=== PATIENT | female | born 1935 | race Caucasian/White ===

== ENCOUNTER 2016-05-15 14:06 | Inpatient (IN) | payer MEDICARE, OTHER ==
[2016-05-15] MEDS ORDERED: HOME MEDICATION LIST NEEDED 1 EA EACH MC ONE (14:15)
[2016-05-15] MEDS ORDERED: ALBUTEROL 0.083% 2.5 MG/3 ML VIAL.NEB NEB PRN (14:18)
[2016-05-15 14:54] LABS: EOSINOPHILS 0.3 % (0.0-6.0)
[2016-05-15 14:58] LABS: NEUTROPHILS# 12.5 X 10^3uL (2.6-6.7)
[2016-05-15] MEDS ORDERED: DEXTROSE 5% IV SCH (15:00)
[2016-05-15] MEDS ORDERED: O2 HUMIDIFIER 650 ML BOTTLE INHALATION ONE (15:00)
[2016-05-15] MEDS ORDERED: D5W IV SCH (15:00)
[2016-05-15] MEDS ORDERED: LEVOFLOXACIN IV SCH (15:00)
[2016-05-15 15:02] LABS: BASOPHIL# 0.1 X 10^3uL (0.0-0.1); BASOPHILS 0.9 % (0.0-2.0); HEMATOCRIT 35.8 % (36.0-48.0); HEMOGLOBIN 11.9 g/dL (12.0-16.0); LYMPHOCYTES 8.8 % (20.0-40.0); LYMPHOCYTES# 1.3 X 10^3uL (0.8-3.8); MEAN CELL VOLUME 91.7 fL (80.0-100.0); MEAN CORPUS. HGB CONCENTRATION 33.3 g/dL (32.0-36.0); MEAN CORPUSCULAR HEMOGLOBIN 30.6 pg (29.0-35.0); MEAN PLATELET VOLUME 7.9 fL (7.4-10.4); MONOCYTES 6.9 % (2.0-10.0); RED BLOOD COUNT 3.91 X 10^6uL (4.20-6.10); RED CELL DISTRIBUTION WIDTH 14.5 % (11.5-14.5)
[2016-05-15 15:04] LABS: NEUTROPHILS 83.1 % (54.0-75.0); WHITE BLOOD COUNT 14.9 X 10^3uL (3.9-10.7)
[2016-05-15 15:07] LABS: ALBUMIN 3.9 g/dL (3.5-5.0); BILIRUBIN, DIRECT 0.5 mg/dL (0.0-0.4); BILIRUBIN, TOTAL 1.9 mg/dL (0.2-1.3); CALCIUM 9.4 mg/dL (8.4-10.2); CREATININE 1.8 mg/dL (0.5-1.0); POTASSIUM 3.9 mmol/L (3.5-5.1); TOTAL PROTEIN 7.4 g/dL (6.3-8.2)
[2016-05-15] MEDS ORDERED: LEVOFLOXACIN/D5W 100 ML IV ONE (16:10)
[2016-05-15] MEDS: POTASSIUM CHLORIDE/NS 1,000 ML IV SCH (16:10)
--- NOTE | 2016-05-15 16:48 | HISTORY & PHYSICAL ---
CHIEF COMPLAINT: Severe cough and pneumonia. HISTORY OF PRESENT ILLNESS: The patient is a 80-year-old male with a long history of chronic pulmonary disease with bronchiectasis and previous left lower lobe resection. She has chronic airway reactivity and chronic cough. However, over the last month, she has had a significant increase in cough which has been productive of thick sputum. In association with this, she has had an increase in shortness of breath, dyspnea on exertion, and wheezing. She has had fevers up to 101 at home. She has had some subjective chills but no shaking chills. She chronically has diffuse chest discomfort which she has attributed to pulmonary problems and there has not been any significant change with this. She denies any palpitations. No orthopnea, PND, significant lower extremity edema. She denies any abdominal pain, nausea or vomiting. No significant asymmetry of her lower extremities. No rashes. No focal neurologic changes from her baseline but she does have diffuse weakness which has been a little bit more noticeable in her legs particularly over the last day. She is eating and drinking but not very hungry. She had more lightheadedness today particularly with sitting up quickly or standing. She was seen in the clinic yesterday by VIRGINIA Solis, and also by Dr. Guerrero of internal medicine. Their recommendation at the time was hospitalization for bilateral pneumonia. Based upon her presentation, significant leukocytosis, abnormal chest x-ray with worsening of left lower lobe with left lower lung appearance, and CT scan without contrast which showed evidence of left lingular infiltrate and also some infiltrate in the right lower lobe. At that point in time the patient declined. She was started on Levaquin orally which was renally dosed. She was written for albuterol nebs to be added to her usual regimen, and oxygen 24 hours a day was recommended. She is back today for reevaluation, feeling more lightheaded and weak. Based on this, she is now being admitted to the hospital for further evaluation and treatment. PAST MEDICAL HISTORY 1. Anemia, chronic disease. 2. History of recurrent angioedema. 3. Moderate aortic regurgitation. 4. Osteoarthritis. 5. Severe asthma in the setting of COPD and bronchiectasis. 6. Basal cell carcinoma involving forehead. 7. Benign liver cyst. 8. Bilateral hearing loss. 9. Bronchiectasis. 10.Bilateral cataracts. 11.Celiac disease. 12. Chronic chest pain. 13. Chronic recurrent mastoiditis. 14. Chronic kidney disease stage 4 with creatinine ranging from 1.5 2. 15. Colon polyps. 16. COPD. 17. Depression. 18. Chronic mild lower extremity edema. 19. GERD. 20. Gout. 21. History of hematuria. 22. Hypercholesterolemia. 23. Hyperparathyroidism. 24. Hypertension. 25. Hypokalemia. 26. Hypothyroidism. 27. Hypoxemia, chronic. 28. Insomnia. 29. IBS. 30. Left bundle branch block. 31. Lichen planus. 32. History of medical nonadherence. 33. Mitral regurgitation. 34. JUAN DANIEL. 35. Recurrent pneumonia. 36. Polypharmacy. 37. Positive ELSA of uncertain significance. 38. TIA in 2004. 39. Tremor. 40. Urethritis, recurrent. 41. Urinary incontinence. 42. Vitamin B12 deficiency. 43. Vitamin D deficiency. PAST SURGICAL HISTORY 1. Appendectomy. 2. Bladder suspension. 3. Cholecystectomy. 4. Core needle biopsy of the breast times multiple involving the left side. 5. Left lower lobe lobectomy of the lung. 6. Mastoidectomy on the right side. 7. Sinus surgery times 2. 8. RADHA with BSO for fibroids. ALLERGIES 1. CARMEN inhibitors resulting in angioedema. 2. Ativan resulting in respiratory arrest. 3. Aztreonam resulting in abdominal pain, nausea and headache. 4. Codeine resulting in uncertain reaction. 5. Iodine resulting in hives. 6. Morphine resulting in respiratory arrest when given in conjunction with Ativan. 7. Penicillin resulting in uncertain reaction. 8. Rocephin resulting in uncertain reaction. MEDICATIONS Advair 500/50, one inhalation b.i.d. Albuterol nebs every 4 hours as needed. Allopurinol 200 mg p.o. daily. Amlodipine 5 mg p.o. daily. Bupropion 150 mg p.o. daily. Combivent 2 puffs 4 times a day as needed. Effexor XR 150 mg p.o. daily. Levaquin 250 mg p.o. daily. Losartan 25 mg p.o. daily. Mucinex 1200 mg p.o. b.i.d. Oxygen at 2 liters per minute by nasal cannula. Omeprazole 40 mg p.o. daily. Plavix 75 mg p.o. daily. Premarin 0.3 mg p.o. daily. Simvastatin 40 mg p.o. q.h.s. Synthroid 75 mcg p.o. daily. Vesicare 10 mg p.o. daily. Vitamin B12 1000 mcg p.o. daily. Vitamin D 2000 units p.o. daily. Zantac 150 mg p.o. daily as needed. SOCIAL HISTORY: Long discussion with her today regarding core status and she wishes to be DNR due to age and decreasing quality of life and multiple comorbidities and low likelihood of a meaningful recovery in the event of a significant cardiac or pulmonary arrest. She does not want to be intubated and placed on a ventilator. Rare alcohol use. Never smoker. FAMILY HISTORY: Noncontributory. REVIEW OF SYSTEMS: Pertinent positives and negatives as above. Remainder are negative. PHYSICAL EXAMINATION VITAL SIGNS: Show a temperature of 96.9, with a blood pressure 100/48, pulse of 71, respirations of 24, 83% on room air and 92% with 2 liters. GENERAL: Well-developed female. No significant respiratory distress and no use of accessory muscles. Talking in mostly full sentences occasionally with an extra breath. Appears tired. HEENT: Normocephalic/atraumatic. Sinuses are nontender in the frontal maxillary regions. Pupil show evidence of prior cataract surgery. Pupils are equal, round and reactive to light with extraocular muscles intact. Oropharynx is clear other than dry mucous membranes. NECK: Supple. She does have some fullness of her left more than her right left submandibular gland. CHEST: Moderately decreased breath sounds throughout. Diffuse mild to moderate wheezes. A few inspiratory squeaks in scattered locations both posteriorly and anteriorly bilaterally. She has left basilar rales more than right. No change in tactile fremitus. Chest wall is nontender. CARDIAC: Regular rate and rhythm. I do not hear an S3 or an S4. She does have a 2/6 holosystolic murmur best heard at the apex and left lower sternal border. ABDOMEN: Positive bowel sounds. Soft, nontender, nondistended. No hepatosplenomegaly. BACK: No costovertebral angle tenderness. EXTREMITIES: No central cyanosis. She does have mild acrocyanosis. Calves are mildly diffusely tender bilaterally. I do not feel any cords and Homans sign is negative. SKIN: No rashes. NEUROLOGIC: The patient alert and oriented times 3. Facial expressions are symmetric. Light touch sensation appears intact. She is moving all 4 extremities equally. LABORATORY STUDIES: Reviewed from yesterday. Her white blood count is 22,000 with hematocrit f 37 and platelets of 231, 84% neutrophils. Her BMP shows a sodium of 134 with a BUN and creatinine of 21 and 1.7 respectively. CHEST X-RAY: Showing evidence of confluent infiltrate in the lingual and enlargement of the left hilum. CT SCAN: Done without contrast yesterday showing no mass in the left hilar region but does show evidence of a left lingual infiltrate with hilar lymphadenopathy. Also some lesser infiltrate in the right lower lobe. Final radiology read on this is pending. ASSESSMENT AND PLAN 1. Pneumonia. Bilateral. Complicated. In the setting of underlying pulmonary disease including COPD/bronchiectasis/asthma. Presenting with increased airway reactivity and shortness of breath and hypoxia with elevated white count with left shift. Organism is unknown. She did not have cultures yesterday. Will obtain these today although she was already started on outpatient oral antibiotics. I will reassess blood counts and chemistries considering her worsening over the last day. I will plan to continue on levofloxacin considering her medication intolerances. Will add IV steroids. Will add bronchodilators via nebulized therapy. Gentle IV fluid resuscitation. There is no current evidence of cardiac decompensation. Doubt pulmonary embolus based on her current presentation which is a pattern of infection. I did review all of this with her today and she is now willing to be admitted to the hospital. Reassess in the morning. 2. Bronchiectasis/COPD/asthma: See above. 3. Hypertension: Will continue on her usual medication regimen and gently IV fluid resuscitate as above. Hold meds for hypotension. 4. Hypercholesterolemia: Continue on usual statin. 5. Depression: Continue on usual medications. 6. Other medical issues will be followed in the context of the above. 7. Vaccine status: The patients last pneumonia shot was Prevnar in 08/2015 and she had her last Pneumovax in 07/2005. Her last flu shot was in 12/2015. Her last TDAP was in 01/2006 and so she is due. This can be given prior to discharge if she is doing well clinically. 8. DVT prophylaxis: Lovenox, renally dosed. 9. Core status: The patient wishes to be DNR as per our discussion today. She would not want to be transferred to an ICU to be placed on a ventilator. That being said, she is willing to accept aggressive medical therapy at this time. FADIA
[2016-05-15] MEDS: IPRATROPIUM/ALBUTEROL 0.5/3 MG 3 ML AMPUL.NEB IH SCH ×2 (17:59→20:28)
[2016-05-15] MEDS ORDERED: POLYVINYL ALCOHOL 1.4% OPHTH 75 DROP/15 ML BTL OPHTHALMIC PRN (20:35)
[2016-05-15] MEDS: ACETAMINOPHEN 325 MG TABLET PO PRN (23:24)
[2016-05-16] MEDS: POTASSIUM CHLORIDE/NS 1,000 ML IV SCH (02:45)
[2016-05-16 06:56] LABS: BASOPHIL# 0.1 X 10^3uL (0.0-0.1); EOSINOPHILS 0.7 % (0.0-6.0); EOSINOPHILS# 0.1 X 10^3uL (0.0-0.4); HEMATOCRIT 32.4 % (36.0-48.0); HEMOGLOBIN 10.4 g/dL (12.0-16.0); LYMPHOCYTES 11.4 % (20.0-40.0); LYMPHOCYTES# 1.2 X 10^3uL (0.8-3.8); MEAN CELL VOLUME 91.7 fL (80.0-100.0); MEAN CORPUS. HGB CONCENTRATION 32.1 g/dL (32.0-36.0); MEAN CORPUSCULAR HEMOGLOBIN 29.5 pg (29.0-35.0); MEAN PLATELET VOLUME 8.5 fL (7.4-10.4); MONOCYTES# 1.1 X 10^3uL (0.2-1.0); NEUTROPHILS 76.9 % (54.0-75.0); NEUTROPHILS# 8.1 X 10^3uL (2.6-6.7); RED BLOOD COUNT 3.53 X 10^6uL (4.20-6.10); RED CELL DISTRIBUTION WIDTH 14.1 % (11.5-14.5); WHITE BLOOD COUNT 10.6 X 10^3uL (3.9-10.7)
[2016-05-16 07:13] LABS: CALCIUM 8.9 mg/dL (8.4-10.2); CREATININE 1.5 mg/dL (0.5-1.0); POTASSIUM 4.3 mmol/L (3.5-5.1)
--- NOTE | 2016-05-16 07:49 | PROGRESS NOTE: IM APSO ---
Assessment and Plan - Date of Encounter Date of Encounter: 05/16/16 (1) Bronchiectasis with acute exacerbation Status: Acute Assessment and plan: Improvement overnight. Good oxygenation on 2-3 L. Still with cough but decreased wheeze. Leukocytosis improving. Continue current antibiotics. Continue current bronchodilators. Oral steroids. Reassess labs in the morning. Ambulate today. Current Visit: Yes (2) Pneumonia, bacterial Status: Acute Assessment and plan: See above. Current Visit: Yes (3) Asthma with exacerbation Status: Acute Assessment and plan: See above. Current Visit: Yes (4) CKD (chronic kidney disease) stage 4, GFR 15-29 ml/min Status: Acute Assessment and plan: Improvement with IV fluids overnight. Continue gentle IV fluids and reassess in the morning. Current Visit: Yes (5) Anemia, chronic disease Status: Acute Assessment and plan: Stable. Current Visit: Yes (6) Hypertension, benign Status: Acute Assessment and plan: Blood pressure appears well controlled. Continue usual regimen. Current Visit: Yes (7) DVT prophylaxis Status: Acute Assessment and plan: Remains on renally dosed Lovenox. Current Visit: Yes - Time Spent With Patient Total time spent with greater than 50% in coordination of care (as documented) at patient's floor/unit and/or counseling patient: IM: PN Subjective General: fatigue, malaise, no fever, no chills Cardiovascular: chest pain (chronic, diffuse), no palpitations, no dizziness Respiratory: cough, sputum, wheeze, SOB Gastrointestinal: no abdominal pain, no nausea, no vomiting Genitourinary: incontinence (chronic) Integumentary: no rashes IM: PN Objective Exam - I&O/Vital Signs I&O: Intake & Output 05/15/16 05/16/16 05/16/16 21:59 05:59 13:59 Intake Total 1347 1900 Balance 1347 1900 Weight 90.718 kg 91.399 kg Intake: IV 467 950 Left Hand 467 950 Oral 880 950 Other: Voiding Method Toilet Toilet # Voids 3 Vital Signs: Last Vital Signs Temp 36.6 C 05/16/16 06:19 Pulse 67 05/16/16 06:19 Resp 18 05/16/16 06:19 BP 144/62 05/16/16 06:19 Pulse Ox 96 05/16/16 06:19 Oxygen Flow Rate 3 Oxygen Delivery Method Nasal Cannula - Constitutional General appearance: Present: obese - Head Head exam: Present: atraumatic - Eye Eye exam: Absent: scleral icterus - ENT ENT exam: Present: mucous membranes moist - Neck Neck exam: Present: full ROM - Respiratory Respiratory exam: Present: decreased breath sounds, prolonged expiratory phase, rales (left greater than right base), rhonchi (mild, scattered), wheezes (mild, scattered). Absent: accessory muscle use - Cardiovascular Cardiovascular exam: Present: RRR, systolic murmur. Absent: S3, S4 - GI/Abdominal GI/Abdominal exam: Present: normal bowel sounds, soft. Absent: organomegaly, tenderness - Extremities Exam Extremities exam: Present: edema (trace bilateral). Absent: Jami's Sign - Neurological Exam Neurological exam: Present: oriented X3 - Psychiatric Psychiatric exam: Present: depressed (flat affect). Absent: agitated, anxious - Lab Labs: Laboratory Last Values WBC 10.6 X 10^3uL (3.9-10.7) 05/16/16 06:00 RBC 3.53 X 10^6uL (4.20-6.10) L 05/16/16 06:00 Hgb 10.4 g/dL (12.0-16.0) L 05/16/16 06:00 Hct 32.4 % (36.0-48.0) L 05/16/16 06:00 MCV 91.7 fL (80.0-100.0) 05/16/16 06:00 MCH 29.5 pg (29.0-35.0) 05/16/16 06:00 MCHC 32.1 g/dL (32.0-36.0) 05/16/16 06:00 RDW 14.1 % (11.5-14.5) 05/16/16 06:00 Plt Count 215 X 10^3uL (130-440) 05/16/16 06:00 MPV 8.5 fL (7.4-10.4) 05/16/16 06:00 Neutrophils % 76.9 % (54.0-75.0) H 05/16/16 06:00 Lymphocytes % 11.4 % (20.0-40.0) L 05/16/16 06:00 Eosinophils % 0.7 % (0.0-6.0) 05/16/16 06:00 Basophils % 1.0 % (0.0-2.0) 05/16/16 06:00 Neutrophils # 8.1 X 10^3uL (2.6-6.7) H 05/16/16 06:00 Lymphocytes # 1.2 X 10^3uL (0.8-3.8) 05/16/16 06:00 Monocytes 10.0 % (2.0-10.0) 05/16/16 06:00 Monocytes # 1.1 X 10^3uL (0.2-1.0) H 05/16/16 06:00 Eosinophils # 0.1 X 10^3uL (0.0-0.4) 05/16/16 06:00 Basophils # 0.1 X 10^3uL (0.0-0.1) 05/16/16 06:00 Sodium 139 mmol/L (137-145) 05/16/16 06:00 Potassium 4.3 mmol/L (3.5-5.1) 05/16/16 06:00 Chloride 108 mmol/L (98-107) H 05/16/16 06:00 Carbon Dioxide 23 mmol/L (22-30) 05/16/16 06:00 BUN 20 mg/dL (7-17) H 05/16/16 06:00 Creatinine 1.5 mg/dL (0.5-1.0) H 05/16/16 06:00 GFR Calculation 36 mL/min 05/16/16 06:00 Glucose 87 mg/dL (70-100) 05/16/16 06:00 Calcium 8.9 mg/dL (8.4-10.2) 05/16/16 06:00 Total Bilirubin 1.9 mg/dL (0.2-1.3) H D 05/15/16 14:45 Direct Bilirubin 0.5 mg/dL (0.0-0.4) H 05/15/16 14:45 AST 16 U/L (14-36) 05/15/16 14:45 ALT 33 U/L (9-52) 05/15/16 14:45 Alkaline Phosphatase 101 U/L (38-126) 05/15/16 14:45 NT-Pro-B Natriuret Pep 1410 pg/mL (<450) H 05/15/16 14:45 Total Protein 7.4 g/dL (6.3-8.2) 05/15/16 14:45 Albumin 3.9 g/dL (3.5-5.0) 05/15/16 14:45 Quality Questions - VTE Prophylaxis Assessment VTE Present on Admission?: No Patient at risk for venous thromboembolism?: Yes VTE Risk Level: High Risk VTE Medical Contraindication: N/A-VTE Prophylaxis ordered (3) Asthma with exacerbation Qualifiers: Asthma severity: severe persistent Qualified Code(s): J45.51 - Severe persistent asthma with (acute) exacerbation
[2016-05-16] MEDS ORDERED: DOXEPIN HCL 10 MG CAPSULE PO PRN (07:53)
[2016-05-16] MEDS: IPRATROPIUM/ALBUTEROL 0.5/3 MG 3 ML AMPUL.NEB IH SCH ×4 (08:16→20:18)
[2016-05-16] MEDS: ALLOPURINOL 100 MG TAB PO SCH (09:00)
[2016-05-16] MEDS: buPROPion XL DAILY 150 MG TABLET PO SCH (09:00)
[2016-05-16] MEDS: CLOPIDOGREL BISULFATE 75 MG TABLET PO SCH (09:00)
[2016-05-16] MEDS: LOSARTAN POTASSIUM 50 MG TABLET PO SCH (09:00)
[2016-05-16] MEDS: GUAIFENESIN ER 600 MG TABLET PO SCH ×2 (09:01→20:17)
[2016-05-16] MEDS: VENLAFAXINE ER 75 MG CAPSULE PO SCH (09:01)
[2016-05-16] MEDS ORDERED: LEVOFLOXACIN IV ONE (09:01)
[2016-05-16] MEDS: PANTOPRAZOLE 40 MG TABLET PO SCH (09:01)
[2016-05-16] MEDS ORDERED: DEXTROSE IV ONE (09:01)
[2016-05-16] MEDS: LEVOTHYROXINE 75 MCG TABLET PO SCH (09:01)
[2016-05-16] MEDS: SIMVASTATIN 20 MG TABLET PO SCH (09:01)
[2016-05-16] MEDS: [UNRECOGNIZED DRUG - REMARK] PO SCH (09:02)
[2016-05-16] MEDS: LEVOFLOXACIN/D5W 250 MG/50 ML PIGGYBACK IV SCH (09:02)
[2016-05-16] MEDS: amLODIPine BESYLATE 5 MG TABLET PO SCH (09:02)
[2016-05-16] MEDS: ENOXAPARIN SODIUM 30 MG/0.3 ML SYR SUBCUT SCH (09:02)
[2016-05-16] MEDS: ACETAMINOPHEN 325 MG TABLET PO PRN ×2 (11:54→23:12)
[2016-05-16] MEDS: BIMATOPROST 0.01% EACHEYE SCH (20:18)
[2016-05-17] MEDS: LEVOTHYROXINE 75 MCG TABLET PO SCH (06:47)
[2016-05-17 07:01] LABS: BASOPHIL# 0.3 X 10^3uL (0.0-0.1); BASOPHILS 3.4 % (0.0-2.0); HEMATOCRIT 32.8 % (36.0-48.0); HEMOGLOBIN 10.6 g/dL (12.0-16.0); LYMPHOCYTES 9.5 % (20.0-40.0); LYMPHOCYTES# 0.9 X 10^3uL (0.8-3.8); MEAN CELL VOLUME 91.8 fL (80.0-100.0); MEAN CORPUS. HGB CONCENTRATION 32.3 g/dL (32.0-36.0); MEAN CORPUSCULAR HEMOGLOBIN 29.6 pg (29.0-35.0); MONOCYTES# 0.3 X 10^3uL (0.2-1.0); NEUTROPHILS# 7.5 X 10^3uL (2.6-6.7); RED BLOOD COUNT 3.57 X 10^6uL (4.20-6.10); RED CELL DISTRIBUTION WIDTH 14.4 % (11.5-14.5)
[2016-05-17 07:29] LABS: CALCIUM 9.5 mg/dL (8.4-10.2); CREATININE 1.4 mg/dL (0.5-1.0); POTASSIUM 4.7 mmol/L (3.5-5.1)
[2016-05-17 07:33] LABS: NEUTROPHILS 84.1 % (54.0-75.0)
[2016-05-17] MEDS: GUAIFENESIN ER 600 MG TABLET PO SCH ×2 (08:25→20:25)
[2016-05-17] MEDS: ALLOPURINOL 100 MG TAB PO SCH (08:26)
[2016-05-17] MEDS: SIMVASTATIN 20 MG TABLET PO SCH (08:26)
[2016-05-17] MEDS: VENLAFAXINE ER 75 MG CAPSULE PO SCH (08:27)
[2016-05-17] MEDS: buPROPion XL DAILY 150 MG TABLET PO SCH (08:27)
[2016-05-17] MEDS: LOSARTAN POTASSIUM 50 MG TABLET PO SCH (08:27)
[2016-05-17] MEDS: CLOPIDOGREL BISULFATE 75 MG TABLET PO SCH (08:27)
[2016-05-17] MEDS: ENOXAPARIN SODIUM 30 MG/0.3 ML SYR SUBCUT SCH (08:28)
[2016-05-17] MEDS: LEVOFLOXACIN/D5W 250 MG/50 ML PIGGYBACK IV SCH (08:31)
[2016-05-17] MEDS: [UNRECOGNIZED DRUG - REMARK] PO SCH (08:36)
[2016-05-17] MEDS: PANTOPRAZOLE 40 MG TABLET PO SCH (08:37)
[2016-05-17] MEDS: amLODIPine BESYLATE 5 MG TABLET PO SCH (08:38)
[2016-05-17] MEDS: IPRATROPIUM/ALBUTEROL 0.5/3 MG 3 ML AMPUL.NEB IH SCH ×4 (08:39→20:33)
--- NOTE | 2016-05-17 09:31 | PROGRESS NOTE: IM APSO ---
Assessment and Plan - Date of Encounter Date of Encounter: 05/17/16 (1) Bronchiectasis with acute exacerbation Status: Acute Assessment and plan: Continued improvement. Good oxygenation on 2 L. Still with cough but no wheeze today. Leukocytosis resolved. Continue current antibiotics. Continue current bronchodilators. Oral steroids. Ambulate today. Anticipate home tomorrow. Current Visit: Yes (2) Pneumonia, bacterial Status: Acute Assessment and plan: See above. Current Visit: Yes (3) Asthma with exacerbation Status: Acute Assessment and plan: See above. Current Visit: Yes (4) CKD (chronic kidney disease) stage 4, GFR 15-29 ml/min Status: Acute Assessment and plan: Improvement with IV fluids. Continue gentle IV fluids and reassess in the morning. Current Visit: Yes (5) Anemia, chronic disease Status: Acute Assessment and plan: Stable. Current Visit: Yes (6) Hypertension, benign Status: Acute Assessment and plan: Blood pressure appears well controlled. Continue usual regimen. Current Visit: Yes (7) DVT prophylaxis Status: Acute Assessment and plan: Remains on renally dosed Lovenox. Current Visit: Yes - Time Spent With Patient Total time spent with greater than 50% in coordination of care (as documented) at patient's floor/unit and/or counseling patient: 16-24 minutes Estimated anticipated discharge: Tomorrow IM: PN Subjective General: fatigue (better), no fever, no chills Cardiovascular: chest pain (chronic, diffuse), no palpitations, no dizziness Respiratory: cough (better), sputum, wheeze (better), SOB (better) Gastrointestinal: no abdominal pain, no nausea, no vomiting Genitourinary: incontinence (chronic) Integumentary: no rashes IM: PN Objective Exam - I&O/Vital Signs I&O: Intake & Output 05/16/16 05/17/16 05/17/16 21:59 05:59 13:59 Intake Total 800 1150 Balance 800 1150 Weight 90.5 kg Intake: Oral 800 1150 Other: Voiding Method Toilet Toilet # Voids 3 3 Vital Signs: Last Vital Signs Temp 36.9 C 05/17/16 06:33 Pulse 72 05/17/16 06:33 Resp 17 05/17/16 06:33 BP 138/61 05/17/16 06:33 Pulse Ox 96 05/17/16 06:33 Oxygen Flow Rate 2 Oxygen Delivery Method Nasal Cannula - Constitutional General appearance: Present: obese - Head Head exam: Present: atraumatic - Eye Eye exam: Absent: scleral icterus - ENT ENT exam: Present: mucous membranes moist - Neck Neck exam: Present: full ROM - Respiratory Respiratory exam: Present: decreased breath sounds, prolonged expiratory phase, rales (left greater than right base). Absent: accessory muscle use, rhonchi, wheezes - Cardiovascular Cardiovascular exam: Present: RRR, systolic murmur. Absent: S3, S4 - GI/Abdominal GI/Abdominal exam: Present: normal bowel sounds, soft. Absent: organomegaly, tenderness - Extremities Exam Extremities exam: Present: edema (trace bilateral). Absent: Jami's Sign - Neurological Exam Neurological exam: Present: oriented X3 - Psychiatric Psychiatric exam: Present: depressed (flat affect). Absent: agitated, anxious - Lab Labs: Laboratory Last Values WBC 9.0 X 10^3uL (3.9-10.7) 05/17/16 06:20 RBC 3.57 X 10^6uL (4.20-6.10) L 05/17/16 06:20 Hgb 10.6 g/dL (12.0-16.0) L 05/17/16 06:20 Hct 32.8 % (36.0-48.0) L 05/17/16 06:20 MCV 91.8 fL (80.0-100.0) 05/17/16 06:20 MCH 29.6 pg (29.0-35.0) 05/17/16 06:20 MCHC 32.3 g/dL (32.0-36.0) 05/17/16 06:20 RDW 14.4 % (11.5-14.5) 05/17/16 06:20 Plt Count 253 X 10^3uL (130-440) 05/17/16 06:20 MPV 8.0 fL (7.4-10.4) 05/17/16 06:20 Neutrophils % 84.1 % (54.0-75.0) H 05/17/16 06:20 Lymphocytes % 9.5 % (20.0-40.0) L 05/17/16 06:20 Eosinophils % 0.0 % (0.0-6.0) 05/17/16 06:20 Basophils % 3.4 % (0.0-2.0) H 05/17/16 06:20 Neutrophils # 7.5 X 10^3uL (2.6-6.7) H 05/17/16 06:20 Lymphocytes # 0.9 X 10^3uL (0.8-3.8) 05/17/16 06:20 Monocytes 3.0 % (2.0-10.0) 05/17/16 06:20 Monocytes # 0.3 X 10^3uL (0.2-1.0) 05/17/16 06:20 Eosinophils # 0.0 X 10^3uL (0.0-0.4) 05/17/16 06:20 Basophils # 0.3 X 10^3uL (0.0-0.1) H 05/17/16 06:20 Sodium 139 mmol/L (137-145) 05/17/16 06:20 Potassium 4.7 mmol/L (3.5-5.1) 05/17/16 06:20 Chloride 108 mmol/L (98-107) H 05/17/16 06:20 Carbon Dioxide 23 mmol/L (22-30) 05/17/16 06:20 BUN 23 mg/dL (7-17) H 05/17/16 06:20 Creatinine 1.4 mg/dL (0.5-1.0) H 05/17/16 06:20 GFR Calculation 39 mL/min 05/17/16 06:20 Glucose 147 mg/dL (70-100) H 05/17/16 06:20 Calcium 9.5 mg/dL (8.4-10.2) 05/17/16 06:20 Total Bilirubin 1.9 mg/dL (0.2-1.3) H D 05/15/16 14:45 Direct Bilirubin 0.5 mg/dL (0.0-0.4) H 05/15/16 14:45 AST 16 U/L (14-36) 05/15/16 14:45 ALT 33 U/L (9-52) 05/15/16 14:45 Alkaline Phosphatase 101 U/L (38-126) 05/15/16 14:45 NT-Pro-B Natriuret Pep 1410 pg/mL (<450) H 05/15/16 14:45 Total Protein 7.4 g/dL (6.3-8.2) 05/15/16 14:45 Albumin 3.9 g/dL (3.5-5.0) 05/15/16 14:45 (3) Asthma with exacerbation Qualifiers: Asthma severity: severe persistent Qualified Code(s): J45.51 - Severe persistent asthma with (acute) exacerbation
[2016-05-17] MEDS: POTASSIUM CHLORIDE/NS 1,000 ML IV SCH ×2 (10:53→23:42)
[2016-05-17] MEDS: BIMATOPROST 0.01% EACHEYE SCH (20:25)
[2016-05-17] MEDS: ACETAMINOPHEN 325 MG TABLET PO PRN (22:09)
[2016-05-18] MEDS: LEVOTHYROXINE 75 MCG TABLET PO SCH (06:06)
[2016-05-18 06:54] VITALS: BP 174/68; RESP 17; TEMP 98
[2016-05-18] MEDS: IPRATROPIUM/ALBUTEROL 0.5/3 MG 3 ML AMPUL.NEB IH SCH (07:37)
[2016-05-18 07:43] VITALS: PULSE 71
--- NOTE | 2016-05-18 08:47 | DC SUMMARY: IM Note ---
Discharge Summary: IM/Peds Provider: Date of Admission: 05/15/16 Admitting Provider: ANUJA RIVERA MD Attending Provider: ANUJA RIVERA MD Discharging Provider: ANUJA RIVERA MD Primary Care Provider: Discharge Date: 05/18/16 - Diagnosis (1) Bronchiectasis with acute exacerbation Status: Acute (2) Pneumonia, bacterial Status: Acute (3) Asthma with exacerbation Status: Acute Qualifiers: Asthma severity: severe persistent Qualified Code(s): J45.51 - Severe persistent asthma with (acute) exacerbation (4) CKD (chronic kidney disease) stage 4, GFR 15-29 ml/min Status: Acute (5) Anemia, chronic disease Status: Acute (6) Hypertension, benign Status: Acute (7) DVT prophylaxis Status: Acute Hospital Course: As documented, patient admitted for treatment of pneumonia and bronchiectasis with exacerbation after failed outpatient management. Cultures negative. Treated with levofloxacin initially IV and then transitioned to oral. Steroid burst. Bronchodilator therapy. Respiratory therapy. Response to treatment included improvement in shortness of breath and wheezing, slight decrease in cough, resolution of leukocytosis. Improvement in energy, and she was up and ambulating independently. Still requiring 2 L of oxygen consistently. The plan at this point is to discharge her to home to complete her course of levofloxacin. Will restart her usual Advair. Albuterol nebs as needed. Combivent as needed. Increase activity as tolerated. Follow-up with me in clinic in 2 weeks. With regard to other medical issues, her chronic anemia was stable. Her blood pressure was intermittently mild, likely related to steroids. This will be followed in the outpatient setting. No other significant changes during her stay. No evidence of cardiac decompensation or new neurologic symptoms. She was treated with IV fluid resuscitation for due to dehydration. DVT prophylaxis was undertaken with Lovenox. - Time Spent with Patient Total time spent providing and/or coordinating discharge services: Specific discharge activities: Increase activity as tolerated. Wear oxygen 24 hours per day. Discharge - Patient/Caregiver Discharge Instructions Activity Level: Advance as tolerated. Diet: Cardiac. Additional Instructions: Wear oxygen 24 hours. Portable oxygen set up will be ordered. Follow up: ANUJA RIVERA MD [Primary Care Provider] - 2 Weeks Overall discharge status: patient is progressing back to baseline Print Language: SERBIAN Home Medications: prednisone [Deltasone*] 20 mg PO BID #6 tablet Levofloxacin [Levaquin*] 250 mg PO DAILY #5 tab Albuterol 0.083% [Ventolin 0.083% Neb Soln*] 2.[address] [facility] QID #50 [email or web address] Disposition: HOME, SELF-CARE Discharge Summary Data - Medication History Medication History: Home Medications Acetaminophen [Tylenol] 325 - 650 mg PO QID PRN 05/15/16 Allopurinol [Zyloprim*] 200 mg PO DAILY 05/15/16 Bimatoprost 0.01% Ophth [Lumigan 0.01% Ophth Soln] 1 drop EACHEYE HS 05/15/16 Calcium Carbonate [Calcium] 1 tab PO DAILY 05/15/16 Cholecalciferol (Vitamin D3) [Vitamin D3] 2,000 unit PO DAILY 05/15/16 Clopidogrel Bisulfate [Plavix*] 75 mg PO DAILY 05/15/16 Cyanocobalamin [VITAMIN B-12*] 1,000 mcg PO DAILY 05/15/16 Levothyroxine [Synthroid*] 75 mcg PO DAILY 05/15/16 Losartan Potassium [Cozaar] 25 mg PO DAILY 05/15/16 Omeprazole 40 mg PO DAILY 05/15/16 Simvastatin [Zocor] 40 mg PO DAILY 05/15/16 Solifenacin Succinate [Vesicare] 10 mg PO DAILY 05/15/16 amLODIPine BESYLATE [Norvasc*] 5 mg PO DAILY 05/15/16 buPROPion XL DAILY [Wellbutrin Xl Daily*] 150 mg PO DAILY 05/15/16 Albuterol 0.083% [Ventolin 0.083% Neb Soln*] 2.[address] [facility] QID #50 vial.neb Doxepin HCl 25 mg PO DAILY PRN #0 05/18/16 Guaifenesin ER [Mucinex*] 1,200 mg PO Q12H tablet 05/18/16 Ipratropium/Albuterol [Combivent Inhaler*] 2 puff INHALATION QID #0 05/18/16 Levofloxacin [Levaquin*] 250 mg PO DAILY #5 tab 05/18/16 Polyvinyl Alcohol 1.4% Ophth [Teargen*] 1 - 4 drop OPHTHALMIC Q2H PRN #0 btl Venlafaxine ER [Effexor Xr*] 150 mg PO DAILY capsule 05/18/16 prednisone [Deltasone*] 20 mg PO BID #6 tablet 05/18/16 Inpatient Medications 05/15/16 14:18 Albuterol 0.083% [Ventolin 0.083% Neb Soln] 2.5 mg NEB Q2H PRN 05/15/16 17:00 Ipratropium/Albuterol 0.5/3 mg [Duoneb 2.5-0.5 mg/3 ml Soln] 3 ml IH QIDINH 05/15/16 20:35 Polyvinyl Alcohol 1.4% Ophth [Teargen] 1 - 4 drop OPHTHALMIC Q2H PRN 05/16/16 07:53 Acetaminophen [Tylenol] 325 - 650 mg PO QID PRN Doxepin HCl [Sinequan] 20 mg PO HS PRN 05/16/16 08:00 Guaifenesin ER [Mucinex] 1,200 mg PO Q12H 05/16/16 09:00 Allopurinol [Zyloprim] 200 mg PO DAILY Clopidogrel Bisulfate [Plavix] 75 mg PO DAILY Enoxaparin Sodium [Lovenox] 30 mg SUBCUT DAILY Levofloxacin/D5w [Levaquin 250 mg] 250 mg IV DAILY Levothyroxine [Synthroid] 75 mcg PO BEFORE BREAKFAST Losartan Potassium [Cozaar] 25 mg PO DAILY Pantoprazole [Protonix] 40 mg PO DAILY Simvastatin [Zocor] 40 mg PO DAILY Solifenacin Succinate [Vesicare] 10 mg PO DAILY Venlafaxine ER [Effexor Xr] 150 mg PO DAILY amLODIPine BESYLATE [Norvasc] 5 mg PO DAILY buPROPion XL DAILY [Wellbutrin Xl Daily] 150 mg PO DAILY prednisone [Deltasone] 20 mg PO BID 05/16/16 21:00 Bimatoprost 0.01% Ophth [Lumigan 0.01% Ophth Soln] 1 drop EACHEYE HS Procedures and tests throughout hospitalization: Completed Lab Orders 05/15/16 14:45 BASIC METABOLIC PANEL [CHEM] Urgent BNP,NT-PRO [CHEM] Urgent CBC AUTO DIF, MDIF/RMOR IF IND [HEM] Urgent HEPATIC PANEL [CHEM] Urgent 05/16/16 06:00 BASIC METABOLIC PANEL [CHEM] AMDRAW CBC AUTO DIF, MDIF/RMOR IF IND [HEM] AMDRAW 05/17/16 06:20 BMP [BASIC METABOLIC PANEL] [CHEM] AMDRAW CBC AUTO DIF, MDIF/RMOR IF IND [HEM] AMDRAW 05/18/16 06:15 PLATELET COUNT [HEM] LABQ2D Pending Orders 05/15/16 14:15 Admit: Inpatient Routine Activity: BRP w/ Assist Only . Assess pulse oximetry CONTINUOUS Intake and Output QSHIFT I&O Obtain weight 0600 Resuscitation Status Routine Titrate Oxygen TITRATE B/W 88-92% Vital Signs ROUTINE VITALS (Q4H) 05/15/16 14:16 Incentive Spirometry Q1H 05/15/16 14:17 Teach: Deep Breathing & Coughi . 05/15/16 14:18 Albuterol 0.083% [Ventolin 0.083% Neb Soln] 2.5 mg NEB Q2H PRN 05/15/16 14:19 SPUTUM CULTURE AND GRAM STAIN [RM] Urgent Respiratory Therapy Consult [RT] Routine 05/15/16 14:20 VTE Prophylaxis Scoring/ Ordering Routine 05/15/16 15:10 BLOOD CULTURE [BC] Stat 05/15/16 17:00 Ipratropium/Albuterol 0.5/3 mg [Duoneb 2.5-0.5 mg/3 ml Soln] 3 ml IH QIDINH 05/15/16 20:35 Polyvinyl Alcohol 1.4% Ophth [Teargen] 1 - 4 drop OPHTHALMIC Q2H PRN 05/15/16 Dinner Cardiac [DIET] Gluten Free 05/16/16 07:53 Acetaminophen [Tylenol] 325 - 650 mg PO QID PRN Doxepin HCl [Sinequan] 20 mg PO HS PRN 05/16/16 08:00 Guaifenesin ER [Mucinex] 1,200 mg PO Q12H 05/16/16 08:01 Activity: Ambulate TID 05/16/16 09:00 Allopurinol [Zyloprim] 200 mg PO DAILY Clopidogrel Bisulfate [Plavix] 75 mg PO DAILY Enoxaparin Sodium [Lovenox] 30 mg SUBCUT DAILY Levofloxacin/D5w [Levaquin 250 mg] 250 mg IV DAILY Levothyroxine [Synthroid] 75 mcg PO BEFORE BREAKFAST Losartan Potassium [Cozaar] 25 mg PO DAILY Pantoprazole [Protonix] 40 mg PO DAILY Simvastatin [Zocor] 40 mg PO DAILY Solifenacin Succinate [Vesicare] 10 mg PO DAILY Venlafaxine ER [Effexor Xr] 150 mg PO DAILY amLODIPine BESYLATE [Norvasc] 5 mg PO DAILY buPROPion XL DAILY [Wellbutrin Xl Daily] 150 mg PO DAILY prednisone [Deltasone] 20 mg PO BID 05/16/16 21:00 Bimatoprost 0.01% Ophth [Lumigan 0.01% Ophth Soln] 1 drop EACHEYE HS Labs on day of discharge: Labs from last 24 hours 05/18/16 06:15 Plt Count 287 Preliminary micro results at discharge 05/15/16 15:10 Blood Culture - Preliminary Blood NO GROWTH TO DATE 05/15/16 14:45 Blood Culture - Preliminary Blood NO GROWTH TO DATE IM: Discharge Physical Exam - I&O/Vital Signs I&O: Intake & Output 05/17/16 05/18/16 05/18/16 21:59 05:59 13:59 Intake Total 1840 1239 Balance 1840 1239 Weight 95 kg Intake: IV 640 814 Left Hand 640 814 Oral 1200 425 Other: Stool Size Moderate Stool Characteristics Formed Voiding Method Toilet Toilet # Voids 3 3 # Bowel Movements 1 Vital Signs: Last Vital Signs Temp 36.7 C 05/18/16 06:52 Pulse 71 05/18/16 07:41 Resp 17 05/18/16 06:52 BP 174/68 05/18/16 06:52 Pulse Ox 95 05/18/16 06:52 Oxygen Flow Rate 2 Oxygen Delivery Method Nasal Cannula - Constitutional General appearance: Present: obese - Head Head exam: Present: atraumatic - Eye Eye exam: Absent: scleral icterus - ENT ENT exam: Present: mucous membranes dry - Neck Neck exam: Present: full ROM - Respiratory Respiratory exam: Present: decreased breath sounds, prolonged expiratory phase, rales (left greater than right base), wheezes (Mild, lower lobes. Scattered.). Absent: accessory muscle use, rhonchi - Cardiovascular Cardiovascular exam: Present: RRR, systolic murmur. Absent: S3, S4 - GI/Abdominal GI/Abdominal exam: Present: normal bowel sounds, soft. Absent: organomegaly, tenderness - Extremities Exam Extremities exam: Present: edema (trace bilateral). Absent: Jami's Sign - Neurological Exam Neurological exam: Present: oriented X3 - Psychiatric Psychiatric exam: Present: depressed (flat affect). Absent: agitated, anxious
[2016-05-18] MEDS: LOSARTAN POTASSIUM 50 MG TABLET PO SCH (09:35)
[2016-05-18] MEDS: ALLOPURINOL 100 MG TAB PO SCH (09:35)
[2016-05-18] MEDS: buPROPion XL DAILY 150 MG TABLET PO SCH (09:35)
[2016-05-18] MEDS: amLODIPine BESYLATE 5 MG TABLET PO SCH (09:35)
[2016-05-18] MEDS: GUAIFENESIN ER 600 MG TABLET PO SCH (09:36)
[2016-05-18] MEDS: VENLAFAXINE ER 75 MG CAPSULE PO SCH (09:36)
[2016-05-18] MEDS: SIMVASTATIN 20 MG TABLET PO SCH (09:37)
[2016-05-18] MEDS: PANTOPRAZOLE 40 MG TABLET PO SCH (09:37)
[2016-05-18] MEDS: CLOPIDOGREL BISULFATE 75 MG TABLET PO SCH (09:37)
[2016-05-18] MEDS: [UNRECOGNIZED DRUG - REMARK] PO SCH (09:38)
[2016-05-18] MEDS: ENOXAPARIN SODIUM 30 MG/0.3 ML SYR SUBCUT SCH (09:38)
[2016-05-18] MEDS: LEVOFLOXACIN/D5W 250 MG/50 ML PIGGYBACK IV SCH (09:38)
[2016-05-18 11:37] VITALS: O2SAT 90
== END 2016-05-18 08:48 | disposition home or self-care (01) | DRG 202 ==
LOC: IN 14:19
PROVIDERS: ADMIT Internal Medicine; ATTEND Internal Medicine
DX: J45.909 Unspecified asthma, uncomplicated (principal); J44.1 Chronic obstructive pulmonary disease with (acute) exacerbation; J44.0 Chronic obstructive pulmonary disease with (acute) lower respiratory infection; J15.9 Unspecified bacterial pneumonia; N18.4 Chronic kidney disease, stage 4 (severe); R26.2 Difficulty in walking, not elsewhere classified; I12.9 Hypertensive chronic kidney disease with stage 1 through stage 4 chronic kidney disease, or unspecified chronic kidney disease; K21.9 Gastro-esophageal reflux disease without esophagitis; K90.0 Celiac disease; Z86.010 Personal history of colon polyps; F32.9 Major depressive disorder, single episode, unspecified; I35.1 Nonrheumatic aortic (valve) insufficiency; M15.9 Polyosteoarthritis, unspecified; C44.319 Basal cell carcinoma of skin of other parts of face; I10 Essential (primary) hypertension; E78.00 Pure hypercholesterolemia, unspecified; E03.9 Hypothyroidism, unspecified; E87.6 Hypokalemia; G47.00 Insomnia, unspecified; E21.3 Hyperparathyroidism, unspecified; R25.1 Tremor, unspecified; L43.3 Subacute (active) lichen planus; K58.9 Irritable bowel syndrome, unspecified; E55.9 Vitamin D deficiency, unspecified; Z86.73 Personal history of transient ischemic attack (TIA), and cerebral infarction without residual deficits; Z87.01 Personal history of pneumonia (recurrent); Z79.899 Other long term (current) drug therapy
CPT/HCPCS: 36415; 80048; 80076; 83880; 85025; 85049; 87040; 94640; E0555; J1650; J1956; J3480; J7512; J7620